=== PATIENT | female | born 1935 | race Caucasian/White ===

== ENCOUNTER 2019-10-27 11:30 | Inpatient (IN) ==
--- NOTE | 2019-10-27 12:12 | Diag Imaging Result Doc PS360 ---
CT HEAD W/O CONTRAST - 10/27/2019 INDICATION: syncope COMPARISON: 01/21/2011 FINDINGS: There is mild diffuse cerebral atrophy and periventricular white matter chronic microvascular ischemia. This has all worsened since prior. No intracranial mass or hemorrhage. The skull is intact. The sinuses, mastoids, and middle ears are clear. IMPRESSION: No acute process. This exam was performed using automated exposure control, adjustment of mA or kV according to patient size, and/or use of iterative reconstruction technique Electronically signed by Clovis Thapa 10/27/2019 12:09 PM
[2019-10-27 12:24] LABS: BASO# 0.08 X1000 (0.0-0.2); BASO% 0.9 % (0.0-0.8); EOS# 0.22 X1000 (0.0-0.7); EOS% 2.5 % (0.0-10.0); HEMATOCRIT 41.9 % (37.0-47.0); IMM GRAN# 0.02 X1000 (0.0-0.04); IMM GRAN% 0.2 % (0.0-0.5); LYMPH# 1.68 X1000 (1.2-3.4); MCH 30.5 PG (27-31); MCHC 33.4 g/dL (33-37); MCV 91.3 FL (81-99); MONO# 0.53 X1000 (0.11-0.59); MPV 9.7 FL (7.4-10.4); NEUT# 6.33 X1000 (1.4-6.5); NEUT% 71.4 % (42.2-75.2); PLT 172 X1000 (130-400); RBC 4.59 XMIL (4.2-5.4); WBC 8.86 X1000 (4.8-10.8)
--- NOTE | 2019-10-27 12:32 | Diag Imaging Result Doc PS360 ---
CHEST-2 VIEWS - 10/27/2019 INDICATION: syncope COMPARISON: 01/30/2013 FINDINGS: Stable calcified granuloma in the left lung. Stable hiatal hernia behind the heart. The lungs are clear. Heart size is normal. No pneumothorax or pleural effusion. IMPRESSION: Hiatal hernia. No acute disease or change from prior. Electronically signed by Clovis Thapa 10/27/2019 12:29 PM
[2019-10-27 12:41] LABS: AGAP 12; ALB/GLOB RATIO 1.5; ALKALINE PHOSPHATASE 122 U/L (32-104); BUN 10 mg/dL (8-22); CALCIUM 8.8 mg/dL (8.8-10.2); CHLORIDE 104 mmol/L (98-107); CK TOTAL 47 U/L (24-173); COSMO 290; CREATININE 0.8 mg/dL (0.5-0.9); ESTIMATED GFR > 60; GLUCOSE 164 mg/dL (70-104); GOT 17 U/L (10-30); GPT 10 U/L (10-36); POTASSIUM 3.5 mmol/L (3.5-5.1); SODIUM 144 mmol/L (136-145); TCO2 28 mmol/L (25-35); TOTAL BILIRUBIN 0.72 mg/dL (0.20-1.00); TOTAL PROTEIN 6.7 g/dL (6.3-8.3)
[2019-10-27 12:51] LABS: FREE T4 1.18 ng/dL (0.93-1.70); TSH 1.96 uIUmL (0.27-4.20)
[2019-10-27 13:20] LABS: URINE SOURCE CLEAN CATCH
[2019-10-27 13:25] LABS: BILIRUBIN URINE NEGATIVE (NEGATIVE); BLOOD URINE NEGATIVE (NEGATIVE); COLOR YELLOW; GLUCOSE URINE NEGATIVE (NEGATIVE); KETONE URINE NEGATIVE (NEGATIVE); LEUKOCYTES URINE LARGE (NEGATIVE); NITRITE URINE POSITIVE (NEGATIVE); PH URINE 6.5; PROTEIN URINE 50 mg/dL (NEGATIVE); SP GRAVITY URINE 1.024; TURBIDITY URINE HAZY (CLEAR); UROBILINOGEN URINE 2 mg/dL (NORMAL)
[2019-10-27 13:26] LABS: UR EPITHELIAL CELLS >10 /HPF (<10); URINE BACTERIA 4+ /HPF; URINE RBC <10 /HPF (<10); URINE WBC TNTC /HPF (<10)
[2019-10-27] MEDS ORDERED: ZOSYN 3.375 GM in NS 50 ML IV ONE (13:28)
[2019-10-27] MEDS ORDERED: NS 1,000 ML IV ONE (13:28)
--- NOTE | 2019-10-27 13:29 | PROVIDER DOCUMENTATION ---
This chart was entered by Viry Kramer Scribe, acting as scribe for Aleks Nava CRNP. HPI-Syncope/Dizziness - General Chief Complaint: Syncope Stated Complaint: SYNCOPE Time Seen by Provider: 10/27/19 11:35 Source: patient, EMS ([email or web address]) Unable to obtain history due to:: altered (per baseline) Allergies/Adverse Reactions: Patient Allergies Allergy/AdvReac Type Severity Reaction Status Date / Time No Known Allergies Allergy Verified 10/27/19 11:50 Home Medications: Home Medication List Medication Instructions Recorded Confirmed Last Taken Type ATORVAstatin [Lipitor] 40 mg PO QHS 02/04/13 10/27/19 10/26/19 History Atenolol [Tenormin] 100 mg PO DAILY 02/04/13 10/27/19 10/27/19 History Clopidogrel [Plavix] 75 mg PO DAILY 02/04/13 10/27/19 10/27/19 History Isosorbide Mononitrate [Isosorbide 30 mg PO DAILY 02/04/13 10/27/19 10/27/19 History Mononitrate ER] LISINOpril [Prinivil] 20 mg PO DAILY 02/04/13 10/27/19 10/27/19 History Omeprazole [Prilosec] 20 mg PO DAILY@0700 02/04/13 10/27/19 10/27/19 History Pregabalin [Lyrica] 75 mg PO Q12HR #14 capsule 02/04/13 Unknown Rx Acarbose 50 mg PO BID 10/27/19 10/27/19 10/26/19 History Donepezil [Aricept] 10 mg PO QHS 10/27/19 10/27/19 10/26/19 History Glipizide 10 mg PO DAILY 10/27/19 10/27/19 10/27/19 History - History of Present Illness-Syncope/Dizzy Nature of Presenting Problem: 84 yowf presents to the ed via ems for 5 minute episode this morning at the table of syncope. ems reports famly witnessed episode and this is the 3rd time in "previous months". per ems when they aos and pt in their care she has remained bradycardiac but in no obvious distress. pt had fsbg 155 and at baseline is a/ x1 to person and remains that while seen in the ed on exam. Prior Episodes: reports: recent history Onset/Duration: reports: this morning Timing: reports: gone now Position/Activity at time of episode: reports: sitting Symptoms prior to episode: reports: none Context: reports: lost consciousness Loss of Consciousness: prolonged (minutes) (5min) Location of injury. (If syncope resulted in an injury.): reports: none Current Symptoms: reports: none/feels normal Similar symptoms previously: reports: workup for same problem Recently Seen Here or By Another Healthcare Provider: No Review of Systems - Adult - REVIEW OF SYSTEMS - ADULT ROS:: limited per condition Constitutional: denies: chills, fever Eyes: reports: no symptoms reported Ears, Nose, Mouth & Throat: reports: no symptoms reported Cardiovascular: reports: see HPI, other (ruddy). denies: chest pain, palpitations Respiratory: denies: cough, shortness of breath, wheezing Gastrointestinal: denies: diarrhea, nausea, vomiting Genitourinary: reports: no symptoms reported Musculoskeletal: reports: no symptoms reported Integumentary: reports: no symptoms reported Neurological: reports: see HPI, syncope. denies: ataxia, dizziness/vertigo, headache/migraines, slurred speech, tremors Psychiatric: reports: no symptoms reported Endocrine: reports: no symptoms reported Hematologic/Lymphatic: reports: no symptoms reported Allergic/Immunologic: reports: no symptoms reported All Other Systems: Reviewed and Negative Past History - Adult - PAST MEDICAL HISTORY-ADULT Review of Records: reports: Old Records Reviewed, Nursing Assessment Review, Medications Reviewed, Social history reviewed & non-contributory. Major Childhood Illnesses: reports: denies history Cardiovascular: reports: HTN Respiratory: reports: denies history Gastrointestinal: reports: GERD Obstetrical/Gynecological: reports: denies history Genitourinary: reports: denies history Musculoskeletal: reports: denies history Hand Dominance: Right Handed Neurological: reports: TIA Psychiatric: reports: denies history Endocrine/Immune: reports: Diabetes Diabetes Type: Type 2 Other Conditions: reports: denies history - PRIOR SURGERIES/PROCEDURES Surgical/Procedure History: reports: reviewed, not pertinent - IMMUNIZATION STATUS Childhood Immunizations: See Nurse Assessment Flu Vaccine: See Nurse Assessment - FAMILY HISTORY Family History: reviewed, not pertinent - SOCIAL HISTORY Smoking: denies Substance Use: denies Living Situation: family Physical Exam-General - PHYSICAL EXAM-ADULT Exam Limited by: pt is a/o x1 to person but is baseline Initial Vital Signs Reviewed: Yes - CONSTITUTIONAL General Appearance: appears well, alert, no apparent distress (nontoxic in appearance) - EYES Eyes: PERRL/EOMI, pink conjunctivae - HEAD, EARS, NOSE, MOUTH & THROAT HENMT: moist mucous membranes - NECK Neck: non-tender, full range of motion, supple, normal inspection - RESPIRATORY Respiratory: chest non-tender, lungs clear, normal breath sounds - CARDIOVASCULAR Cardiovascular: normal peripheral pulses, bradycardia (54) - CHEST (BREASTS) Chest/Breast: deferred - GASTROINTESTINAL (ABDOMEN) Abdominal Exam: normal bowel sounds, non tender, soft - GENITOURINARY Female Genitalia/Pelvic Exam: deferred Rectal Exam: deferred Hemoccult Exam: deferred - LYMPHATIC Lymphatic: no adenopathy - MUSCULOSKELETAL Back Exam: no CVA tenderness, no vertebral tenderness Extremity: normal range of motion, non-tender, normal gait, normal inspection - SKIN Integumentary: normal color, normal turgor, warm/dry - NEUROLOGIC Neurologic: grossly normal, no motor/sensory deficits - PSYCHIATRIC Psych/Mental Status: normal mood/affect Progress - PLAN OF CARE/RESULTS Progress/Plan/Lab Results: Vital Signs - 8 hr 10/27/19 11:33 10/27/19 12:17 Temperature 97.8 F Pulse Rate 54 L Pulse Rate [Sitting] 69 Pulse Rate [Standing] 70 Pulse Rate [Supine] 54 L Respiratory Rate 16 Blood Pressure 184/76 Blood Pressure [Sitting] 147/65 Blood Pressure [Standing] 136/60 Blood Pressure [Supine] 153/67 O2 Sat by Pulse Oximetry 97 Laboratory Results - last 24 hr 10/27/19 10/27/19 10/27/19 12:03 12:10 12:10 WBC RBC Hgb Hct MCV MCH MCHC RDW Std Deviation Plt Count MPV Immature Gran % (Auto) Neut % (Auto) Lymph % (Auto) [place] % (Auto) Eos % (Auto) Baso % (Auto) Immature Gran # (Auto) Neut # (Auto) Lymph # (Auto) [place] # (Auto) Eos # (Auto) Baso # (Auto) Sodium 144 Potassium 3.5 Chloride 104 Carbon Dioxide 28 Anion Gap 12 BUN 10 Creatinine 0.8 Estimated GFR/1.73 m2 > 60 BUN/Creatinine Ratio 13 Glucose 164 H POC Glucose 155 H Calculated Osmolality 290 Calcium 8.8 Total Bilirubin 0.72 AST 17 ALT 10 Alkaline Phosphatase 122 H Creatine Kinase 47 44 Troponin T High Sens Total Protein 6.7 Albumin 4.0 Globulin 2.7 Albumin/Globulin Ratio 1.5 TSH Free T4 Urine Source Urine Color Urine Turbidity Urine pH Ur Specific [place] Urine Protein Ur Glucose (Stick) Ur Ketones (Stick) Urine Blood Urine Nitrite Urine Bilirubin Urobilinogen Dipstick Urine Leukocytes Urine WBC (Auto) Urine RBC (Auto) U Epithel Cells (Auto) Urine Bacteria (Auto) 10/27/19 10/27/19 10/27/19 12:10 12:10 12:10 WBC 8.86 RBC 4.59 Hgb 14.0 Hct 41.9 MCV 91.3 MCH 30.5 MCHC 33.4 RDW Std Deviation 14.0 Plt Count 172 MPV 9.7 Immature Gran % (Auto) 0.2 Neut % (Auto) 71.4 Lymph % (Auto) 19.0 L [place] % (Auto) 6.0 Eos % (Auto) 2.5 Baso % (Auto) 0.9 H Immature Gran # (Auto) 0.02 Neut # (Auto) 6.33 Lymph # (Auto) 1.68 Pitt # (Auto) 0.53 Eos # (Auto) 0.22 Baso # (Auto) 0.08 Sodium Potassium Chloride Carbon Dioxide Anion Gap BUN Creatinine Estimated GFR/1.73 m2 BUN/Creatinine Ratio Glucose POC Glucose Calculated Osmolality Calcium Total Bilirubin AST ALT Alkaline Phosphatase Creatine Kinase Troponin T High Sens 16 Total Protein Albumin Globulin Albumin/Globulin Ratio TSH 1.96 Free T4 1.18 Urine Source Urine Color Urine Turbidity Urine pH Ur Specific [place] Urine Protein Ur Glucose (Stick) Ur Ketones (Stick) Urine Blood Urine Nitrite Urine Bilirubin Urobilinogen Dipstick Urine Leukocytes Urine WBC (Auto) Urine RBC (Auto) U Epithel Cells (Auto) Urine Bacteria (Auto) 10/27/19 12:40 WBC RBC Hgb Hct MCV MCH MCHC RDW Std Deviation Plt Count MPV Immature Gran % (Auto) Neut % (Auto) Lymph % (Auto) [place] % (Auto) Eos % (Auto) Baso % (Auto) Immature Gran # (Auto) Neut # (Auto) Lymph # (Auto) [place] # (Auto) Eos # (Auto) Baso # (Auto) Sodium Potassium Chloride Carbon Dioxide Anion Gap BUN Creatinine Estimated GFR/1.73 m2 BUN/Creatinine Ratio Glucose POC Glucose Calculated Osmolality Calcium Total Bilirubin AST ALT Alkaline Phosphatase Creatine Kinase Troponin T High Sens Total Protein Albumin Globulin Albumin/Globulin Ratio TSH Free T4 Urine Source CLEAN CATCH Urine Color YELLOW Urine Turbidity HAZY Urine pH 6.5 Ur Specific [place] 1.024 Urine Protein 50 A Ur Glucose (Stick) NEGATIVE Ur Ketones (Stick) NEGATIVE Urine Blood NEGATIVE Urine Nitrite POSITIVE A Urine Bilirubin NEGATIVE Urobilinogen Dipstick 2 A Urine Leukocytes LARGE A Urine WBC (Auto) TNTC A Urine RBC (Auto) <10 U Epithel Cells (Auto) >10 A Urine Bacteria (Auto) 4+ Orders Category Date Time Status Nursing- Obtain EKG ONCE Care 10/27/19 11:38 Active Orthostatic Vital Signs NOW Care 10/27/19 11:40 Active CHEST-2 VIEWS [RAD] Stat Exams 10/27/19 11:[address] HEAD W/O CONTRAST [CT] Stat Exams 10/27/19 11:38 Completed CBC WITH ELECTRONIC DIFF [HEME] Stat Lab 10/27/19 12:10 Completed CK PROFILE [SP CHEM] Stat Lab 10/27/19 12:10 Completed CK TOTAL [CHEM] Stat Lab 10/27/19 12:10 Completed COMPREHENSIVE METABOLIC PANEL [CHEM] Stat Lab 10/27/19 12:10 Completed FREE T4 Stat Lab 10/27/19 12:10 Completed TROPONIN T HIGH SENSITIVITY Stat Lab 10/27/19 12:10 Completed TSH Stat Lab 10/27/19 12:10 Completed UA NIMS W/REFLEX CULT [URINALYSIS] Stat Lab 10/27/19 12:40 Completed EKG [EKG] Stat Ther 10/27/19 11:38 Ordered Result Diagrams: 10/27/19 12:10 10/27/19 12:10 - EKG 1 Time of EKG reading by physician:: 11:42 EKG Read and Signed by:: Benjamin Delgado EKG Interpretation (*Must complete 3 of following elements*): Abnormal Rate: 53 Rhythm: sinus ruddy [place]: normal QRS: normal DE Interval: normal ST Wave: normal - XRAY 1 XRAY: Bilateral XRAY Study: Chest Impression: See EMR Report (FINDINGS: Stable calcified granuloma in the left lung. Stable hiatal hernia behind the heart. The lungs are clear. Heart size is normal. No pneumothorax or pleural effusion. IMPRESSION: Hiatal hernia. No acute disease or change from prior. Electronically signed by Clovis Thapa 10/27/2019 12:29 PM 10/27/19 1229) - CT/MRI 1 CT Study: Head Impression: See EMR Report (FINDINGS: There is mild diffuse cerebral atrophy and periventricular white matter chronic microvascular ischemia. This has all worsened since prior. No intracranial mass or hemorrhage. The skull is intact. T he sinuses, mastoids, and middle ears are clear. IMPRESSION: No acute process. This exam was performed using automated exposure control, adjustment of mA or kV according to patient size, and/or use of iterative reconstruction technique Electronically signed by Clovis Thapa 10/27/2019 12:09 PM 10/27/19 1204) - CONSULTS/PCP/HOSPITALIST Notification #1 *Consult/PCP/Hospitalist*: Porfirio Lazo for [facility] Time Discussed: 13:27 Reason/Comments: Syncope Consult Disposition: Admit Departure - Departure Date of Disposition Decision: 10/27/19 Time of Disposition Decision: 13:27 DIAGNOSIS: Syncope Qualifiers: Syncope type: unspecified Qualified Code(s): R55 - Syncope and collapse Disposition: ADMITTED INPATIENT 09 Certified Medical Emergency: Emergent Condition: Critical Additional Instructions: ED Follow Up Instructions: You have been treated by a care provider in the Emergency Department. These instructions are being provided to you so you can have an understanding of how to care for yourself upon discharge. Upon discharge from the Emergency Department, you are responsible for making arrangements for follow-up care by a physician of your choice. Take all prescribed medications as directed. Return to the Emergency Department immediately for any new or worsening symptoms. You may call the Physician Referral phone number at [phone] to obtain a list of Physicians who are taking new patients. Referrals and Follow-Ups: Cortes Cabello MD [Primary Care Provider] - - Critical Care Note This patient required my direct & personal management of CC.: No Attestation - Physician/ COLE Attestation Patient care was provided by Advanced Practice Provider:: Yes Advanced Practice Provider:: Aleks Nava Advanced Practice Provider documentation review:: The Mid-level provider documentation, treatment plan and medical decision making was reviewed by the physician who agrees with all treatment and medical decision making by the P. The physician spent face to face time with patient:: No Advanced Practice Provider documentation review:: Supervising physician onsite and consulted in the evaluation and care of this patient. The physician did not have a face to face encounter with the patient. This chart was documented by the indicated scribe, (Viry Kramer Scribe) and accurately reflects the services I performed and decisions made by Brandy aguilar Reagan R., CRNP, as attested by the provider's signature.
[2019-10-27] MEDS ORDERED: TYLENOL PO PRN (15:11)
[2019-10-27] MEDS ORDERED: ZOFRAN IV PRN (15:11)
--- NOTE | 2019-10-27 15:49 | HISTORY AND PHYSICAL ---
PRIMARY CARE PROVIDER: Unknown. CHIEF COMPLAINT: Passed out. HPI: Ms. Reeder is a 84-year-old female who is a very poor historian who reports this morning while she was making breakfast she had a syncopal episode, she reports she was only out for a short time secondary to nausea and vomiting and diarrhea. She reports that she has had previous episodes like this before but not as severe. She said they started about 6 to 7 months ago and she has had 1 to 2 spells every month since then, the last 1 being last month. Patient is pretty much denying any past medical history. She reports she is in really good health. However she is on a blood thinner, diabetes medication, high blood pressure medication. She reports she does not have any of these issues but then when I ask her about her home medication she said the list is too long for her to name off. She is not sure who her primary care provider is. She reports that she just moved in with family 6 or 7 months ago after these episodes started happening. She does know her name. She could not tell me her date of . She does know that today is the 4th but she could not tell me the current year or president. Workup in the ER revealed a urinary tract infection. She does report frequent urination but no burning. She does not report any history of frequent UTIs. PAST MEDICAL HISTORY: Per patient she is in good health and has no medical issues. However records indicate hypertension, TIA, diabetes mellitus, GERD. SURGICAL HISTORY: Denies. FAMILY HISTORY: Denies . SOCIAL HISTORY: She goes back and forth between her daughter and her son's house, she does have her on property that she will be in the process of selling soon, she is a . No alcohol, tobacco or illicit drug use. REVIEW OF SYSTEMS: Completely negative except for those mentioned in HPI. She denies any headache, fever, chills, dizziness, chest pain, shortness of breath, heart palpitation, abdominal pain, sore throat, sick contacts or recent travel. She does report vomiting and diarrhea and occasional diarrhea for her norm and some urinary frequency. PHYSICAL EXAMINATION: VITAL SIGNS: Temperature is 97.8 degrees, heart rate 53, respiration 21, blood pressure 138/60, O2 is 93% on room air. GENERAL: Ms. Reeder is a pleasant 84-year-old female who is sitting up in the stretcher in no acute distress. HEENT: Atraumatic, normocephalic. PERRL. NECK: Supple. Trachea midline. CARDIOVASCULAR: S1, S2 appreciated. No murmurs, gallops, rubs noted. RESPIRATORY: Lung sounds clear bilaterally. GI: Soft, nontender, nondistended. Positive bowel sounds 4 quads. Lower extremities negative for edema. NEURO: Patient is alert to her name. She could not tell me her date of . She could not tell me the current year, however she knew today was October 26. She does not know the president. She could not tell me who her primary care provider was. DIAGNOSTIC DATA: Head CT no acute process. Chest x-ray, hiatal hernia, no acute disease or change from prior. EKG showed a sinus bradycardia at 53. LABORATORY DATA: White count 8, hemoglobin and hematocrit 14 and 41, platelet count is 172,000. Sodium 144, potassium 3.5, BUN 10, creatinine 0.8, blood glucose is 164. Two sets of troponins are in the 40s. Urinalysis 4+ bacteria, large leukocytes, too numerous to count WBCs, positive for nitrites. ASSESSMENT AND PLAN: 1. Syncopal episode associated with nausea, vomiting diarrhea and urine incontinence. The patient reports that she has had at least 1 to 2 these episodes over the past 6 to 7 months, this is the reason why she moved in with her daughter and son. Per family's report, she was out for over 5 minutes. The patient reports she was not out that long and she blacked out for a minute secondary to her nausea and vomiting with loss of bowel and bladder We will get echocardiogram and carotids on Tuesday. Consult Cardiology. We will hold her blood pressure medicines as well as any rate-controlling medicines, will also do orthostatics. 2. Probable dementia. 3. Urinary tract infection. Place an order for urine culture. Will continue with IV antibiotics. 4. Diabetes mellitus type 2. Place her on fingerstick blood sugar, sliding scale, diabetic diet, check hemoglobin A1c. 5. History of transient ischemic attack patient denies. 6. Gastroesophageal reflux disease, patient denies. Will continue her home Prilosec. She does have a hiatal hernia on chest x-ray. 7. Hypertension, patient denies, will hold blood pressure medication for now. 8. Further recommendation to follow physician evaluation, laboratory and diagnostic data. Dictated by TALON Dahl for Ramiro Barillas MD cc: Ramiro Barillas MD [facility]
--- NOTE | 2019-10-27 16:57 | HISTORY AND PHYSICAL ---
ADDENDUM REPORT I have seen and examined Ms. Reeder today. Ms. Reeder came to the emergency room early today because of loss of consciousness. 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 I called her daughter, Ms. Selma Varma, at [phone], and she was able to give me a history. Briefly Ms. Reeder has chronic comorbidities including coronary artery disease, hypertension, diabetes. According to the daughter, they had both finished eating breakfast early this morning, so Ms. Reeder immediately after was just sitting on the couch, and she realized that the mother's eyes started to roll over and was acting funny because she was not responding. She was looking, staring. Subsequently, she just became unresponsive with the head down. She tried multiple times to call her mom, and Ms. Reeder would not respond. All this happened while she was sitting down. According to Ms. Varma, the patient was unresponsive for about 6 minutes. At the end of almost the 6 minutes, Ms. Reeder threw up and after that, then she became awake and was talking. Her first words were that she wanted to go and use the restroom, but the daughter told her that she cannot get up because EMS was on the way coming. Ms. Reeder ended up peeing and defecating on herself, but she was aware about that. According to the daughter, while Ms. Reeder was unresponsive, she noted froth around the mouth and nose, but she did not see any generalized jerking movements. According to Ms. Varma, this is about the third time Ms. Reeder has had a similar presentation. They witnessed a similar presentation on 09/14/2019 and then again on 09/15/2019. All these two previous episodes happened also immediately after breakfast. On the second episode, she was sent to [facility] where she was told that she had a bad urinary tract infection and was sent home. Ms Varma also believes that Ms. Reeder had another episode of this somewhere in July of this year, but this was not witnessed. Ms. Reeder herself told them that she probably blacked out on that occasion. In any case, Ms. Reeder was brought into the emergency room where she was evaluated, initially was found to have elevated blood pressure and pulse was on the lower end. Orthostatic vitals were not very conclusive, but still her blood pressure went down slightly. Her vitals have all been reviewed. Physical exam with her does not show any neuro deficits. She surely has some cognitive impairment but no motor or sensory deficit. On cardiovascular, the patient as positive murmur that is radiating to the neck. ASSESSMENT: 1. Recurrent loss of consciousness with spontaneous recovery. No signs of generalized tonic- clonic movements. However, I think it is concerning that Ms. Reeder has had this 3 times and probably 4 times in a row. Initial CT scan of the head was unremarkable, so we will get an MRI of the brain and an EEG and also get Neurology to evaluate her. Upon presentation, as I said, her orthostatic was abnormal, not quite diagnostic, but the blood pressure went down when she stood up, and she looks clinically slightly dry, so I think it is reasonable to give her fluids and recheck on her orthostatics at a later time. Her urine is also slightly abnormal, suspicious for urinary tract infection, so we are going to culture this and then treat her accordingly. She is bradycardic. I think this is probably medication induced. She is on atenolol and also on donepezil. Atenolol will be held overnight and we will re-evaluate her. I do not see any EKG done, so we have ordered another STAT EKG, and an echo will be done to rule out any underlying structural abnormality of the heart. We will continue to monitor and control all her other comorbidities. 2. Advanced dementia. The patient will be started back on her medications. 3. Suspected syncope versus a probable neurological event. We will continue to treat and investigate. 4. Please refer to the details of the history and physical that has been dictated by the BENDING SHED WORKER in the chart. I have discussed the plan with her. I have also called the family and spoken extensively with Ms. Varma who is the daughter who lives with the patient, and I have discussed my findings and the plan with her. cc: Ramiro Barillas MD
--- NOTE | 2019-10-27 17:26 | EKG Report ---
Test Performed on : 10/27/2019 4:31:09 PM Test Reason : cp Blood Pressure : / mmHG Vent. Rate : 055 BPM Atrial Rate : 055 BPM P-R Int : 174 ms QRS Dur : 086 ms QT Int : 454 ms P-R-T Axes : 043 032 028 degrees QTc Int : 434 ms Sinus bradycardia. Otherwise normal ECG No previous ECGs available Confirmed by Treva SULLIVAN, Gennaro Hsu ([id number]) on 10/30/2019 9:39:23 AM
--- NOTE | 2019-10-27 17:27 | EKG Report ---
Test Performed on : 10/27/2019 11:42:42 AM Test Reason : syncope Blood Pressure : / mmHG Vent. Rate : 053 BPM Atrial Rate : 053 BPM P-R Int : 172 ms QRS Dur : 086 ms QT Int : 458 ms P-R-T Axes : 033 008 -38 degrees QTc Int : 429 ms Sinus bradycardia. Nonspecific T wave abnormality Abnormal ECG When compared with ECG of 21-JAN-2011 01:43, T wave inversion more evident in Inferior leads Nonspecific T wave abnormality now evident in Lateral leads Confirmed by Treva SULLIVAN, Gennaro Hsu ([id number]) on 10/30/2019 9:39:18 AM
[2019-10-27] MEDS: HUMALOG SUBQ SCH ×2 (18:15→21:55)
[2019-10-27] MEDS: ROCEPHIN 1 GM in NS 50 ML IV SCH (21:51)
[2019-10-27] MEDS: LIPITOR PO SCH (21:55)
[2019-10-27] MEDS: ARICEPT PO SCH (21:55)
[2019-10-28] MEDS: PRILOSEC PO SCH (06:20)
[2019-10-28] MEDS: HUMALOG SUBQ SCH ×4 (06:21→20:16)
[2019-10-28 07:49] LABS: HEMOGLOBIN A1C 6.1 % (4.8-6.0)
[2019-10-28 08:14] LABS: AGAP 11; BUN 8 mg/dL (8-22); CALCIUM 8.9 mg/dL (8.8-10.2); CHLORIDE 103 mmol/L (98-107); COSMO 279; CREATININE 0.7 mg/dL (0.5-0.9); ESTIMATED GFR > 60; GLUCOSE 126 mg/dL (70-104); POTASSIUM 3.6 mmol/L (3.5-5.1); SODIUM 140 mmol/L (136-145); TCO2 26 mmol/L (25-35)
--- NOTE | 2019-10-28 14:20 | CARDIOLOGY CONSULTATION ---
DATE: 10/28/2019 INDICATION: Syncope. HISTORY OF PRESENT ILLNESS: Ms. Reeder is an 84-year-old female with a history of coronary disease, hypertension, hyperlipidemia, and Alzheimer's. She presented with complaints of syncope that occurred yesterday prior to presentation. She was eating breakfast and apparently had an episode of syncope that was not proceeded by any symptoms. She was out for around 6 minutes according to the daughter. Upon waking back up, she had nausea, vomiting, as well as lost control of her bowel and bladder. The patient reports that she recovered after that and did not have any after effects. She did not have any preceding pain. PAST MEDICAL HISTORY: 1. Significant for coronary disease. Cardiac cath in 2009 demonstrated a previous stent in a ramus with 20 to 30% disease. The circumflex had a stent placed over a proximal 70% lesion. It applies collaterals to an occluded right coronary with left to right collaterals. Left main had no significant disease. Left ventriculogram showed an EF greater than 60%. 2. Hypertension. 3. Hyperlipidemia. 4. Diabetes. 5. Reported dementia. 6. TIA. SOCIAL HISTORY: She apparently lives with various family members including a daughter and a son. No alcohol or tobacco. REVIEW OF SYSTEMS: A 10 system review of systems is negative except for those things mentioned in HPI. FAMILY HISTORY: Significant for hypertension. PHYSICAL EXAMINATION: Vital signs: She is afebrile. Heart rates have been documented predominantly in the 50s. Blood pressure most recently is 160/59. She has had several sets of orthostatics vitals which do not appear to be very conclusive. Generally: No acute distress. HEENT: Oropharynx is moist. Poor dentition. Eye examination shows pink conjunctivae, white sclerae. Neck: Examination shows no obvious thyromegaly or thyroid tenderness. Cardiovascular: She sounds to be in a regular rate and rhythm. She has no obvious murmurs. She has no S3. She has no lower extremity edema. Chest: Clear bilaterally. She has no increased work of breathing. Abdomen: Soft, nontender, nondistended. She has no obvious organomegaly. Skin: Warm and dry throughout without any rashes. Neurological: Moving all extremities well. She has no lateralizing deficits. PERTINENT DATA: Chest x-ray shows evidence for a hiatal hernia, otherwise unremarkable. Head CT shows no evidence of acute findings. Her EKG on the at 16:31 shows sinus rhythm. Subsequent EKG occurring on the 4th at 11:42 shows sinus rhythm, no acute ischemic changes, rate at 53 beats per minute. LAB DATA: Shows white count 8.8, hematocrit 41 platelet count 172,000. Sodium 140, potassium 3.6, BUN 8 creatinine 0.7. She had a normal TSH and free T4. Her urinalysis was positive for too- [id number] WBCs, positive nitrite, 4+ bacteria. ASSESSMENT: Ms. Reeder is an 84-year-old female who presented with an episode of syncope. PLAN: Atenolol has been discontinued. I believe this is reasonable as the patient does not have any acute reasons for a beta blockade. She has not had a myocardial infarction nor does she have a history of heart failure. I would try to obtain adequate blood pressure control with alternative medications. We can consider doing an outpatient heart monitor for the patient and she may follow up with Dr. Vidal, her primary fire pilot. cc: Cirilo Anne MD
--- NOTE | 2019-10-28 15:12 | PROGRESS NOTE ---
DATE: 10/28/2019 SUBJECTIVE: This morning Ms. Reeder refers to be doing well. She denies any more blacking out. Orthostatic vitals have been repeated multiple times. Every now and then become positive. OBJECTIVE: Vitals: Current vitals: The patient's blood pressure lying down is 188/58 with a pulse of 52. Standing up, the blood pressure went down to 138/60. Pulse went up to 62. Sitting up, blood pressure is 166/60, pulse of 56. General: Ms. Reeder is an 87-year-old elderly female. She is sitting up in a chair. No distress. HEENT: Mucosa is pink and moist. Anicteric. Acyanotic. Neck: Supple. Chest: Good air entry bilateral. There are no crepitations, no rhonchi. Cardiovascular: Regular rate and rhythm. GI/Abdomen: Soft. Bowel sounds present. Extremities: No pedal edema. 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 Easily forgetful. LABORATORY DATA: Chemistry is for the most part unremarkable. A1c of 6.1. Urine culture showing gram-negative karri. ASSESSMENT: 1. Recurrent loss of consciousness with spontaneous recovery, suspicious for syncope versus an underlying neurological event. The patient has been evaluated by Cardiology and will be seen tomorrow by Neurology. MRI is pending for tomorrow. 2. Bradycardia, presumably medication induced. The patient's atenolol has been discontinued. She is also on donepezil which is anticholinesterase inhibitor, can increase cholinesterase innervation and presumably cause bradycardia as well. 3. Advanced dementia. 4. Syncope, presumably orthostatic in nature. The patient's orthostatic vitals get positive every now and then. We are going to continue with the IV fluids and continue to monitor. 5. Gram-negative karri urinary tract infection. Patient is on antibiotics. cc: Ramiro Barillas MD
[2019-10-28] MEDS: ARICEPT PO SCH (20:15)
[2019-10-28] MEDS: ROCEPHIN 1 GM in NS 50 ML IV SCH (20:15)
[2019-10-28] MEDS: LIPITOR PO SCH (20:15)
[2019-10-29] MEDS: PRILOSEC PO SCH (06:30)
[2019-10-29] MEDS: HUMALOG SUBQ SCH ×4 (06:30→22:26)
--- NOTE | 2019-10-29 12:57 | ECHO REPORT ---
ORDER DATE: 10/29/2019 INTERPRETING PHYSICIAN: Dr. Joey Vidal. ECHOCARDIOGRAPHIC MEASUREMENTS: 1. Interventricular septum: 1.6 cm. 2. Left ventricular posterior wall: 1.4 cm. 3. Diastolic diameter: 3.6 cm. 4. Left atrium: 3.1 cm. 5. Left atrial index: 41.96 cm. 6. Aorta: 2.4 cm. SUMMARY OF THE 2-DIMENSIONAL IMAGIN. There is left atrial enlargement. 2. Mitral valve was normal. There is moderate mitral annular calcification. 3. Aortic valve leaflets were trileaflet, calcified. 4. Tricuspid valve was normal. 5. Pulmonic valve was normal. 6. Normal left ventricular cavity size. Concentric left ventricular hypertrophy. Estimated ejection fraction of 65%. 7. There is mild mitral regurgitation. 8. There is grade 2 diastolic dysfunction. 9. Peak velocity across the aortic valve was 3.4 m/sec with a maximum gradient of 46 mmHg, mean gradient of 29 mmHg. Aortic valve area by VTI was 1.1 square cm. There is moderate aortic stenosis. There is no associated aortic regurgitation. 10. There is dtcu-nh-ojahhokj mitral regurgitation. 11. There is no pericardial effusion or obvious intracardiac mass or thrombus seen. cc: Joey Vidal MD
[2019-10-29] MEDS ORDERED: COREG PO ONE (15:12)
--- NOTE | 2019-10-29 15:19 | Diag Imaging Result Doc PS360 ---
EXAM: MRI BRAIN W/WO CONTRAST 10/29/2019 HISTORY: LOC. R/o seizures TECHNIQUE: T1 sagittal, axial and post gadolinium-enhanced axial with coronal reformation, axial T2, FLAIR, DWI and coronal gradient echo. COMMENT: There is an empty sella. There are patchy periventricular and subcortical white matter hyperintensities on T2 consistent with chronic microvascular disease. There is no evidence of bleed mass effect or abnormal extra-axial fluid collections. There are no previous MRI studies. There is no evidence of restricted diffusion. No abnormal contrast enhancement is present. IMPRESSION: Chronic microvascular changes. No evidence of acute intracranial disease. Electronically signed by Ivan Burrows 10/29/2019 3:16 PM
--- NOTE | 2019-10-29 15:33 | PROGRESS NOTE ---
DATE: 10/29/2019 SUBJECTIVE: I have seen and examined Ms. Reeder this morning. She was standing up. She feels a lot better. Denies any blacking out. OBJECTIVE: Vital signs: Blood pressure is 203/75, pulse of 68, respiration is 18, temperature 97.7 degrees. General: Objectively, Ms. Reeder is an 84-year-old elderly female. She is in bed, no distress. HEENT: Mucosa is pink and moist. Anicteric. Acyanotic. Neck: Supple. Chest: Clear to auscultation. No crepitations. No rhonchi. Cardiovascular: Regular rate and rhythm. Mild murmur radiating to the neck. Gastrointestinal: Abdomen soft, nontender. Bowel sounds present. Extremities: No pedal edema. Central Nervous System: Patient was awake, alert, oriented to person and to place. Disoriented to time. LABORATORY DATA: None for today. Microbiology: Urine cultures positive for Escherichia coli. ASSESSMENT: 1. Recurrent loss of consciousness with spontaneous recovery, suspicious for syncope versus underlying neurological event. The patient has been evaluated, was evaluated by Cardiology yesterday with pending new neurological evaluation. MRI is also pending for today. 2. Bradycardia, presumably medication induced. Atenolol has been discontinued. 3. Advanced dementia. Patient is on donepezil. 4. Syncope, presumably a combination of orthostatic and vasovagal. 5. Escherichia urinary tract infection. Patient is on antibiotics. PLAN: In general, Ms. Reeder seems to be doing well. She got admitted because of loss of consciousness, which seems to have happened at least about 3 times in the past. Ms. Reeder herself has some cognitive impairment and she does not give accurate history, so I had to call her daughter who gave a more elaborate history. It is possible that her current presentation was all related to syncope, maybe medication related as well as well as urinary tract infection. However, it is concerning that she has had this loss of consciousness about 3 times in the past so we have consulted Neurology to evaluate her. EEG has been done and we will follow up with further recommendations from both Cardiology and Neurology. Ms. Reeder herself is now clinically stable that I think she can be discharged, once we have final recommendation from the subspecialties. cc: Ramiro Barillas MD Addendum: Neurology consult notes noted, no concerns for seizures. Presentation is believed to be syncope. Patient can potentially be discharged tomorrow to follow up with Dr Vidal. Daughter has been notified and aware about likely discharge tomorrow. TAYLER
--- NOTE | 2019-10-29 16:52 | NEUROLOGY CONSULTATION ---
DATE: 10/29/2019 SUBJECTIVE: Ms. Reeder is 85 years old and there is reported to be baseline dementia. Neurology consultation was requested because of recent collapse. History from the patient is that she does not remember everything clearly, but believes she was seated, feeling well, having a meal. She remembers being nauseated and vomiting. She believes that she passed out at about the same time she began to vomit, but she is not certain of this sequence and she believes she might have passed out and then regained consciousness and vomited or might have vomited while she was unconscious. She did not fall out of her chair. There was not report of limb rigidity, jerking or other seizure like feature. She did lose control of bladder. She remembers feeling like she was beginning to recover almost immediately after regaining consciousness. She reports at least 2 or 3 prior similar spells in recent months, but she has never vomited or wet her pants with prior spells. There is no history of serious head injury, diagnosed stroke, previous seizure, other neurologic event. She does not use ethanol. Family supervises medications. She cannot tell me the name of her physician, name of her medicines or what medical conditions she treats. Workup here includes brain MRI which shows diffuse micro ischemic change but nothing focal or acute. EEG showed some slowing but no tendency to seizure. Lab showed blood sugars 120s-160s. A1c was 6.1%. She reports not having diabetes mellitus. There is not significant anemia. She has been afebrile. Systolic blood pressures have been recorded between 104 and 203. Heart rate has been mostly in the 50s. She has had Cardiology evaluation this admission. Atenolol was discontinued. Echocardiogram showed ejection fraction 65%, no source of embolus. PAST MEDICAL HISTORY: There is past history of dementia, hypertension, dyslipidemia, ischemic heart disease. PHYSICAL EXAMINATION: General/Neurologic: On exam, she is awake, alert, attentive, cheerful. Speech is not significantly dysarthric. Language function is intact on brief bedside testing. Remote memory is fair. Recent memory is poor. She named the city correctly, but did not identify this as a hospital. She agreed when I told her that she is in the hospital. She provided the correct month but could not state the year or the day of the week. She could not name the President. She knew that there was some kind of crisis going on that kept everyone at home, but she could not provide details. I did not test her cognitive function further. Head and neck are unremarkable. Visual velasquez are full on gross confrontational testing by finger counting. Facial motility is diminished bilaterally, but symmetric. Gag is intact. Tongue is midline. Shoulder shrug is good. She can hear. She has good power in the arms and legs symmetrically. Limb tone is symmetric. She did well on [id number]-jm-[id number] testing bilaterally. Sensation is symmetric on gross light touch testing over the limbs. I did not test her gait. IMPRESSION: 1. Global encephalopathy, uncertain etiology. By report, she has a baseline cognitive impairment syndrome. She has donepezil 10 mg daily listed with her home medicines. She was not able to tell me how long she has been taking that medicine. 2. She has history of recent collapse. 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 I encouraged her to stay well hydrated, to stand slowly, to sit quickly if she is lightheaded, to make sure she takes her medications as directed. EEG was not remarkable. I do not have any further suggestion from Neurology standpoint. If she has more episodes with further question of neurologic etiology, I will be glad to see her again. Thanks for asking Neurology to see Ms. Reeder. cc: MD TAYLER Varela III
--- NOTE | 2019-10-29 17:37 | Carotid Study ---
DATE: 10/29/2019 CRM CONSULTANT: Leigh Albarado RVT. REQUESTING PHYSICIANS: TALON Dahl. INDICATIONS: Syncope. FINDINGS: Bilateral carotid arteries visualized. Vessels are quite tortuous. In the right bulb, there are mild atherosclerotic changes noted. In the left there is more broad-based plaque but the velocities are in the normal range and would correlate to a 0 to 39% stenosis, antegrade vertebrals bilaterally. IMPRESSION: Mild degree of atherosclerotic changes noted bilaterally with antegrade vertebrals. cc: Cassandra Lambert MD
[2019-10-29] MEDS: ROCEPHIN 1 GM in NS 50 ML IV SCH (21:24)
[2019-10-29] MEDS: ARICEPT PO SCH (21:24)
[2019-10-29] MEDS: COREG PO SCH (21:25)
[2019-10-29] MEDS: LIPITOR PO SCH (21:25)
[2019-10-30] MEDS: HUMALOG SUBQ SCH ×3 (06:07→16:30)
[2019-10-30] MEDS ORDERED: IMDUR PO SCH (09:00)
[2019-10-30] MEDS ORDERED: PRINIVIL PO SCH (09:00)
[2019-10-30] MEDS: COREG PO SCH (09:05)
[2019-10-30] MEDS: PRILOSEC PO SCH (09:14)
--- NOTE | 2019-10-30 10:12 | NEUROLOGY PROGRESS NOTE ---
DATE: 10/30/2019 SUBJECTIVE: Ms. Reeder continues awake, alert, attentive, cheerful and appropriate. She continues mostly disoriented. She does not have any specific complaint. She told me she feels well, she feels strong and she feels like going home. She has not had further collapse or syncope. ASSESSMENT AND PLAN: I do not have any new thoughts or new suggestions from Neurology standpoint. If she has further episodes with question of neurologic explanation, we can consider prolonged EEG recording and neurology follow-up. I would continue donepezil. Thanks for asking Neurology to see Ms. Reeder. cc: Godwin Grajeda III, MD MTDD
[2019-10-30 16:40] VITALS: BP 105/50
--- NOTE | 2019-10-30 19:51 | DISCHARGE SUMMARY ---
ADMISSION DATE: 10/27/2019 DISCHARGE DATE: 10/30/2019 DISCHARGE DIAGNOSES: 1. Syncope, possibly related to bradycardia. 2. Bradycardia related to medications. 3. Dementia. 4. Escherichia coli urinary tract infection. CONSULTATIONS: 1. Cardiology, Omid Kerr. 2. Dr. Grajeda, Neurology. PROCEDURES: None. HISTORY OF PRESENT ILLNESS: Briefly it is an 84-year-old female who passed out. She has had several episodes of this. She was bradycardic in the 50s. She is on 100 mg of atenolol. She had UTI on admission with altered mental status. So, she was treated. Positive nitrite. She had a workup. Cardiology was consulted, recommended to hold I think her beta trung as she did not have an absolute essentially necessary need for beta trung. Brain MRI was negative for stroke. Carotids did not show significant carotid stenosis. EF on echocardiogram was 65%, otherwise normal, grade 2 diastolic dysfunction. We will continue to monitor. 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 EEG did not show any evidence of seizure and she was felt stable for discharge. Recommend continuing Aricept. DISCHARGE MEDS: Aricept 10, Lipitor 40, acarbose 50 b.i.d., glipizide 10 daily, Imdur 30 daily, Plavix 75 daily, Prilosec 20 daily, Prinivil 20 daily, atenolol was discontinued, Lyrica 75 q.12, Keflex 500 p.o. b.i.d. for 10 days. DISCHARGE CONDITION: Is stable. I would make sure she follows up with Dr. Grajeda and Dr. Vidal. I think she may need an outpatient Holter loop monitor. TIME SPENT: 32 minute discharge. cc: MD Godwin Hein III, MD TAYLER Dover
--- NOTE | 2019-10-31 08:50 | EEG REPORT ---
DATE: 10/29/2019 REFERRING PHYSICIAN: Ramiro Barillas MD MAINTENANCE AND OPERATIONS SUPERVISOR: Blanca Garcia. BACKGROUND INFORMATION/TECHNIQUE: This is a digitally recorded routine EEG with video. HISTORY: An 84-year-old female patient with recurrent loss of consciousness with question of syncope versus seizure or other neurologic event. After eating breakfast, she was sitting on the couch and apparently her eyes rolled over followed by staring and unresponsiveness. After approximately 6 minutes, she threw up and became aware and was talking. There was froth around the mouth and nose, but no jerking movements noted. She had similar episode on 09/14 and 09/15, all events immediately after eating breakfast. EEG is ordered to detect evidence of seizures. EEG FINDINGS: A posterior dominant alpha rhythm is not seen. The background consists of theta slowing with intermixed faster frequencies. No definite persistent focal slowing. No epileptiform discharges. No seizures. Hyperventilation was not performed. Photic stimulation induces a normal driving response. No definite drowsiness patterns. Stage II sleep is not seen. EKG demonstrates regular intervals. IMPRESSION AND CLINICAL CORRELATION: Abnormal routine EEG due to mild diffuse slowing suggestive of a mild nonspecific encephalopathy. No epileptiform discharges or seizures seen on the current study. This does not rule out an underlying seizure disorder. cc: MD Ramiro Rodriguez MD [facility]
== END 2019-10-30 19:01 | disposition home or self-care (01) | DRG 309 ==
LOC: SUPCPDRO → ED 11:30 → SUATTDRO 13:53 → 3N 13:53
PROVIDERS: ATTEND Internal Medicine